=== PATIENT | female | born 1995 | race Caucasian/White ===

== ENCOUNTER 2018-05-27 08:36 | Emergency (ER) | payer SELFPAY ==
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
[2018-05-27 09:09] LABS: PLATELET COUNT 346 10^3/uL (150-400)
[2018-05-27 12:17] VITALS: BP 128/76
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
--- NOTE | 2018-05-27 13:38 | ASMTTCLDSP ---
TLC Discharge Disposition Disposition: Answers: Discharge If Answers: Yes DISCHARGED: Patient/family given suicide hotline info & SAMHSA brochure? Disposition Notes: Notes: Pt stated commitment or ability to keep self safe, denied thoughts of self harm or harm to others. Pt expressed a desire to f/u with counseling assistance upon her return back to [place], [place]. Pt was given local hotline information and SAMHSA brochure After an Attempt. Discharge Concerns/Recommendations: Notes: In consultation with [facility] ED physician, Shun Ortega MD, Cr. Ortega concurred that pt does not appear to meet 27-65 criteria requiring psychiatric hospitalization as pt does not appear to be an imminent risk of harm to self/others/gravely disabled due to a mental illness condition. Dr. Ortega provided verbal order read back vacating M1 hold at 1145 hrs. Was patient given the Answers: Not applicable Inpatient Behavioral Health Prohibited Belongings List while in the ED? Psychiatrist vacating M1 Shun Ortega MD Hold: Date and time M1 hold 05/27/2018 11:45 AM vacated (time format is hh:mm): Type of Hold: Answers: M1/72-hour Hold Hold initiated by: Answers: Police Date Signed: 05/27/2018 01:38 PM Electronically Signed By:David Sethi
== END 2018-05-27 12:18 | disposition home or self-care (01) ==
PROC: 0HQEXZZ Repair Left Lower Arm Skin, External Approach (ICD-10-PCS; principal; 2018-05-27)
DX: S51.812A Laceration without foreign body of left forearm, initial encounter (principal); X78.9XXA Intentional self-harm by unspecified sharp object, initial encounter; Y99.9 Unspecified external cause status; Y93.9 Activity, unspecified; Y92.9 Unspecified place or not applicable
CPT/HCPCS: 80305; G0480

== ENCOUNTER 2018-05-29 17:14 | Emergency (ER) | payer SELFPAY ==
[~2018-05-29 17:14] MED LIST: AMOXICILLIN/CLAVULANATE POT 875/125 MG TAB PO SCH
--- NOTE | 2018-05-29 19:25 | EDPHY ---
General Time Seen by Provider: 05/29/18 19:13 Narrative: CHIEF COMPLAINT: Stitches are infected, vaginal discharge HISTORY OF PRESENT ILLNESS: Patient presents with 2 complaints. The 1st is concerned that her stitches are infected. She suffered a self-inflicted left forearm wound 2 days ago, when she was seen here for mental health evaluation. Laceration was repaired in a running suture fashion. No antibiotics prescribed. She said she was doing well until this morning, which she has had increasing pain and redness that she is drawn a line around. No fever. Pain is worse with palpation and movement. Does not radiate. She thought she saw some drainage from the site. Second complaint is vaginal discharge and burning. This has been present for several days. She has no pelvic pain with this. She does have irregular menstrual cycles, last menstruating in late March prior to now. She is also concerned that she may have a retained tampon. She has some mild bleeding with this with menstruation. She has no flank pain. No nausea, vomiting or urinary complaints. She has been sexually active over the past few days and is concern for possible infection. She denies any recurrence of her suicidal feelings that she has several days ago. She was admitted and treated for this. No other associated complaints or modifying factors. REVIEW OF SYSTEMS: 10 systems were reviewed and negative with the exception of the elements mentioned in the history of present illness. PCP: Pending SPECIALISTS: None PAST MEDICAL HISTORY: Depression, anxiety, bipolar PAST SURGICAL HISTORY: No surgical history SOCIAL HISTORY: Lives independently. FAMILY HISTORY: Noncontributory EXAMINATION: General Appearance: Alert, no distress Head: normocephalic, atraumatic Eyes: Pupils equal and round, no conjunctival pallor or injection ENT, Mouth: Mucous membranes moist Neck: Normal inspection, supple, non-tender Respiratory: Lungs are clear to auscultation Cardiovascular: Regular rate and rhythm. No murmur Gastrointestinal: Abdomen is soft and nontender : Pelvic exam performed with female (Beth) ED cryptological technician at bedside. Normal external genitalia. Mild venous blood in the adnexa. Normal-appearing cervix. Swabs obtained. No foreign body in the vagina. Back: non-tender, no bony abnormalities Neurological: A&O, nonfocal, normal gait Skin: Warm and dry. There is a 3.5 cm laceration left anterior forearm that has been suture repaired. There is some surrounding erythema and warmth. No purulence. No dehiscence. No palpable fluctuance or abscess. No petechiae or purpura. Extremities: Nontender, no pedal edema Psychiatric: Mood and affect normal. Denies suicidal ideation or homicidal ideation. DIFFERENTIAL DIAGNOSES: Including but not limited to laceration with infection, cellulitis, dehiscence, bacterial vaginosis, Trichomonas, gonorrhea, chlamydia, amenorrhea, MDM: 7:25 p.m. Multiple complaints including possible infected suture line, possible retained tampon with vaginal discharge. Her abdominal exam is completely benign. She had labs 2 days ago that were within normal limits. We will perform pelvic swab to look for the possible retained tampon, performed cervical swabs for STD testing and urinalysis. I will also anesthetize the lacerations so that we can irrigate these. 7:50 p.m. Laceration has been anesthetized and re-irrigated. I do not feel that we need to remove the sutures at this time. I do not appreciate any purulence from the site. There is some serous drainage. There is surrounding cellulitis that we will treat with Augmentin. No dehiscence. 8:30 p.m. Pelvic exam performed with female clinical audiologist (Beth). Mild amount of blood in the adnexa. No tenderness. Mildly abnormal appearance with some friability of the cervix but no concerning appearance. Swabs obtained. Urine test negative. 9:30 p.m. Pelvic swabs pending. Wound has been irrigated. Antibiotics commenced here 10:00 p.m. Swabs are negative for Trichomonas. Pending GC and Chlamydia. I had a lengthy discussion with the patient and she has elected for empiric/prophylactic coverage with Rocephin and azithromycin here. This will be administered. I have also provided Augmentin by medication assistance program. We discussed returning here in 24 hr if no improvement of the left laceration. We discussed sooner return for any worsening symptoms. We discussed gynecology follow-up for ongoing irregular menstrual cycle. We discussed ED precautions for abdominal pain, pelvic pain, fever, nausea vomiting. She is comfortable this plan discharged home stable condition SUPERVISION: This patient was independently evaluated without direct involvement of or examination by the attending physician. CONSULTATION: None - History Smoking Status: Current every day smoker - Objective Vital Signs: Initial Vital Signs Temperature (C) 97.9 F 05/29/18 17:24 Heart Rate 105 H 05/29/18 17:24 Respiratory Rate 18 05/29/18 17:24 Blood Pressure 108/74 05/29/18 17:24 O2 Sat (%) 98 05/29/18 17:24 O2 Delivery Mode Room Air Allergies/Adverse Reactions: No Known Allergies Allergy (Verified 05/29/18 17:24) Home Medications: Medication Instructions Recorded Amoxicillin/Clavulanate Pot 875 mg PO BID #20 tab 05/29/18 [Augmentin 875 MG TAB (*)] Laboratory Results: 05/29/18 05/29/18 05/29/18 20:43 20:43 20:43 Urine Color Urine Appearance Urine pH Ur Specific [place] Urine Protein Urine Ketones Urine Blood Urine Nitrate Urine Bilirubin Urine Urobilinogen Ur Leukocyte Esterase Urine RBC Urine WBC Ur Epithelial Cells Urine Bacteria Urine Mucus Urine Glucose Trichomonas (Wet Prep) NO TRICHOMONAS Carrie species DNA Pending C.trachomatis RNA (TMA) Pending Gardnerella DNA Probe Pending N.gonorrhoeae RNA (TMA) Pending Trichomonas DNA Probe Pending 05/29/18 19:30 Urine Color RED Urine Appearance MODERATELY TURBID Urine pH 5.0 (5.0-7.5) Ur Specific [place] 1.031 H (1.002-1.030) Urine Protein 2+ H (NEGATIVE) Urine Ketones 1+ H (NEGATIVE) Urine Blood 3+ H (NEGATIVE) Urine Nitrate NEGATIVE (NEGATIVE) Urine Bilirubin NEGATIVE (NEGATIVE) Urine Urobilinogen 2.0 EU H EU (0.2-1.0) Ur Leukocyte Esterase 2+ H (NEGATIVE) Urine RBC 50-182 /hpf H /hpf (0-3) Urine WBC 50-182 /hpf H /hpf (0-3) Ur Epithelial Cells 4+ /lpf H /lpf (NONE-1+) Urine Bacteria 3+ /hpf H /hpf (NONE SEEN) Urine Mucus 4+ /lpf H /lpf (NONE-1+) Urine Glucose NEGATIVE (NEGATIVE) Trichomonas (Wet Prep) Carrie species DNA C.trachomatis RNA (TMA) Gardnerella DNA Probe N.gonorrhoeae RNA (TMA) Trichomonas DNA Probe Medications Given: Discontinued Medications Amoxicillin/Clavulanate Potassium (Augmentin 875mg) 875 mg PO EDNOW ONE PRN Reason: Protocol Stop: 05/29/18 19:57 Last Admin: 05/29/18 19:59 Dose: 875 mg Azithromycin (Zithromax) 1,000 mg PO EDNOW ONE PRN Reason: Protocol Stop: 05/29/18 22:12 Last Admin: 05/29/18 22:38 Dose: 1,000 mg Ceftriaxone Sodium (Rocephin Im Syringe) 250 mg IM ONCE ONE PRN Reason: Protocol Stop: 05/29/18 22:12 Last Admin: 05/29/18 22:36 Dose: 250 mg Point of Care Test Results: Urine Collection Date 05/29/18 Collection Time 19:31 HCG Results Negative Departure - Departure Disposition: Home, Routine, Self-Care Clinical Impression: Vaginal discharge Laceration of forearm, left, complicated Qualifiers: Encounter type: subsequent encounter Qualified Code(s): S51.812D - Laceration without foreign body of left forearm, subsequent encounter Condition: Good Instructions: Amoxicillin/Clavulanate Potassium (By mouth), Azithromycin (By mouth), Ceftriaxone (By injection), Laceration (ED) Additional Instructions: 1. Augmentin as prescribed to completion. 2. Return here in 24 hr for wound check if no improvement, or sooner for any worsening symptoms, fever or drainage from the wound 3. Contact promotions intern as provided to establish outpatient care 4. Contact primary care physician as provided to establish outpatient care 5. ED precautions as discussed Referrals: Alea Dean MD [[facility] [place] Primary Care Provider] - As per Instructions Radha Blum MD [Medical Doctor] - As per Instructions [facility],. [Clinic] - As per Instructions Physician,Emergency DeptMD [Medical Doctor] - As per Instructions (24 hr wound check if no improvement. Sooner for any worsening symptoms or fever) Prescriptions: Amoxicillin/Clavulanate Pot [Augmentin 875 MG TAB (*)] 875 mg PO BID #20 tab
[2018-05-29] MEDS ORDERED: AMOXICILLIN/CLAVULANATE POT 875/125 MG TAB PO ONE (19:56)
[2018-05-29] MEDS ORDERED: AZITHROMYCIN 250 MG TAB PO ONE (22:11)
[2018-05-29 22:42] VITALS: BP 115/73
[2018-05-30 11:07] LABS: GC AMPLIFICATION GENPROBE NEGATIVE (NEGATIVE)
== END 2018-05-29 22:50 | disposition home or self-care (01) ==
DX: T81.4XXA Infection following a procedure, initial encounter (principal); S51.812D Laceration without foreign body of left forearm, subsequent encounter; N89.8 Other specified noninflammatory disorders of vagina; F17.200 Nicotine dependence, unspecified, uncomplicated
CPT/HCPCS: J0696